=== PATIENT | male | born 1990 | race Caucasian/White ===

== ENCOUNTER 2018-02-10 04:14 | Emergency (ER) | payer MEDICAID, SELFPAY ==
[2018-02-10] VITALS (72 sets, daily range): BP systolic 101–154; BP diastolic 59–83; PULSE 90–144; RESP 12–38; TEMP 36.5–36.9; O2SAT 84–100
[2018-02-10] MEDS: Normal Saline 1,000 ML 1000 ML IV ×4 (04:15→07:56)
--- NOTE | 2018-02-10 04:26 | ED.GENADUL ---
Disposition Clinical Impression: DKA (diabetic ketoacidoses) Disposition: AGAINST MEDICAL ADVICE Condition: Serious Instructions: Diabetic Ketoacidosis (ED) Additional Instructions: Drink plenty of fluids and get plenty of rest. Eat a well-balanced diet and check your sugar regularly. Avoid processed foods, sugars and excess carbs. Take your regular medications as directed. Follow-up with your scheduled appointment with Dr. Arnold and Dr. Saleem as directed. Home health will see you later today for reevaluation. Return immediately to the emergency department any worsening or new concerning symptoms. Medical Decision Making - Lab Data Abnormal Lab Results 02/10/18 02/10/18 02/10/18 04:40 04:40 04:40 WBC 24.76 H RBC 3.58 L Hgb 11.6 L D Hct 34.9 L MCV 97.5 H MCH 32.4 MCHC 33.2 RDW 13.2 Plt Count 299 D MPV 10.9 Immature Gran % 1.4 Neutrophils % 84.1 Lymphocytes % 11.0 Monocytes % 3.2 Eosinophils % 0.1 Basophils % 0.2 Absolute Neutrophils 20.82 H Absolute Lymphocytes 2.72 Absolute Monocytes 0.79 H Absolute Eosinophils 0.02 Absolute Basophils 0.05 Differential Comment Agrees w/ instrument RBC Morphology Normal Sodium 132 L Potassium 5.6 H D Chloride 94 L Carbon Dioxide < 5.0 L* Anion Gap 33.58691 H BUN 12 D Creatinine 1.26 Estimated GFR/1.73 m2 >= 60.00 Glucose 632 H* D Lactate 3.2 H Calcium 8.3 L Magnesium 1.7 L Total Bilirubin 0.7 AST 25 ALT 23 Alkaline Phosphatase 126 H Troponin I 0.02 Total Protein 6.1 L Albumin 3.2 L Urine Color Urine Clarity Urine pH Ur Specific [place] Urine Protein Urine Ketones Urine Blood Urine Nitrite Urine Bilirubin Urine Urobilinogen Ur Leukocyte Esterase Urine RBC Urine WBC Ur Epithelial Cells Urine Crystals Urine Bacteria Urine Casts Urine Mucus Ur Culture Indicated? Urine Glucose 02/10/18 04:55 WBC RBC Hgb Hct MCV MCH MCHC RDW Plt Count MPV Immature Gran % Neutrophils % Lymphocytes % Monocytes % Eosinophils % Basophils % Absolute Neutrophils Absolute Lymphocytes Absolute Monocytes Absolute Eosinophils Absolute Basophils Differential Comment RBC Morphology Sodium Potassium Chloride Carbon Dioxide Anion Gap BUN Creatinine Estimated GFR/1.73 m2 Glucose Lactate Calcium Magnesium Total Bilirubin AST ALT Alkaline Phosphatase Troponin I Total Protein Albumin Urine Color Yellow Urine Clarity Clear Urine pH 5.0 Ur Specific [place] 1.020 Urine Protein 100 H Urine Ketones >=160 Urine Blood Trace-lysed H Urine Nitrite Negative Urine Bilirubin Small H Urine Urobilinogen 0.2 Ur Leukocyte Esterase Negative Urine RBC 0-2 Urine WBC Negative Ur Epithelial Cells Few Urine Crystals Negative Urine Bacteria Negative Urine Casts 0-2 coarse granular Urine Mucus Negative Ur Culture Indicated? No Urine Glucose 500 H Results reviewed for labs ordered during visit: Yes - EKG Data -: EKG Interpreted by Me Rate: tachycardia 02/10/18 04:28 Sinus tachycardia, QRS narrow, no ST segment elevation - Radiology Data Radiology results: image reviewed - Medical Decision Making 19-year-old male type I diabetic presents with generalized weakness, dehydration with nausea and blood glucose measuring greater than 600 [address] route. He has a history of gastroparesis as well as recurrent episodes of DKA. He arrives afebrile but with a pulse in the 140s, normotensive, clinically dehydrated in appearance. Differential diagnosis includes DKA, dehydration, electrolyte abnormality. 2 IVs placed, 2 L normal saline infused, insulin drip initiated. Patient established urine output. Labs reveal white blood cell count of 24, hematocrit 34, platelets 299. Lactic acid 3.2. Chemistries reveal bicarb 2, potassium 5.1, Magnesium 1.7, glucose greater than 600, Anion gap 33 Chest x-ray without focal infiltrate, otherwise unremarkable. No ICU beds available at and [facility], case discussed with Dr. Ricardo at [facility] and patient accepted in transfer to the ICU. Informed by our EMS providers that they are unable to transport insulin drip, [facility] contacted and they are unavailable to transfer. Given lack of transport options, as well as patient's correction of glucose to 415, I feel the patient's risk/benefit weighs in favor of placing insulin on hold for approximately 60 minutes of transport with ongoing fluid resuscitation. Unfortunately, at the time of transfer, the patient stated he wished to be made DNR/DNI and did not be transferred to tertiary care. He states he has established care with Dr. Britt Saleem and wishes to see her in consultation again today. Therefore, in accordance with the patient's wishes, transfer has been postponed and the patient will be seen in consultation by Dr. Saleem. Case will be signed out to Dr. Adames pending further consultation. History of Present Illness - General Chief complaint: Diabetes Stated complaint: SHANE Time Seen by Provider: 02/10/18 04:19 Source: patient, EMS, RN notes reviewed, old records reviewed Mode of arrival: EMS Limitations: no limitations - History of Present Illness Initial comments: Weakness: 27-year-old male. Type I diabetic with a history of DKA, poor glucose control, poor medical compliance who was recently admitted and discharged on February 07. He returns with recurrent nausea, vomiting, decreased p.o. intake and subsequent moderate constant weakness today. He is alert and conversant but declines to give further history. - Related Data Blood Sugar Diagnostic [Freestyle Test Strips] 1 each MC DIRECTED #60 strip 05/02/16 Alcohol Antiseptic Pads [Alcohol Swab] 1 each TP QID #100 med..pad 08/26/17 Blood Sugar Diagnostic [Freestyle Insulinx Test Strips] 1 each MC DIRECTED #60 strip 08/26/17 Lancets [Lancets Thin] 1 each MC QID #120 each 08/26/17 Magnesium Oxide [Mag-Ox 400] 400 mg PO DAILY@1000 #30 tab 08/26/17 Mirtazapine [Remeron] 15 mg PO QPM #30 tab 08/26/17 Multivitamin W/Minerals [Theragran-M] 1 tab PO BID #60 tab 08/26/17 [place], Insulin Disposable [Pen [place]] 1 each MC BID #60 dis.needle 08/26/17 Syringe & Needle,Insulin,1 ml [Insulin Syringe] 1 each MC QID #120 disp.syrin 08/26/17 Dronabinol [Marinol] 5 mg PO BID 10/02/17 Insulin Aspart [Novolog Flexpen] 5 - 10 units SQ AC #5 appful 01/24/18 Insulin Detemir [Levemir Flextouch Pen] 5 units SC BID@1000,2200 #5 pen 01/24/18 Allergies Allergy/AdvReac Type Severity Reaction Status Date / Time lidocaine AdvReac Severe silent Unverified 02/11/18 11:31 stroke procaine HCl [From Novocain] AdvReac Severe silent Unverified 02/11/18 11:31 stroke Penicillins AdvReac Intermediate vomiting Unverified 02/11/18 11:31 etodolac AdvReac Mild Nausea Unverified 02/11/18 11:31 ketorolac tromethamine AdvReac Mild vomits Unverified 02/11/18 11:31 [From Toradol] sodium fluoride AdvReac Mild Unverified 02/11/18 11:31 [From Fluor-a-day] morphine AdvReac Nausea Unverified 02/11/18 11:31 Review of Systems Limitations: ROS unobtainable due to patients medical condition Past Medical History - Past Medical History Medical history: diabetes, GERD, hyperlipidemia Malabsorption syndrome Surgical history: no surgical history - Social History Alcohol use: none Drug use: marijuana General Exam - General Limitations: no limitations General appearance: in distress, cachectic - Head Head exam: Present: atraumatic, normocephalic - Eye Eye exam: Present: PERRL, EOMI - ENT ENT exam: Present: mucous membranes dry - Neck Neck exam: Present: normal inspection, full ROM. Absent: tenderness - Respiratory Respiratory exam: Present: other (Tachypnea, clear to auscultation bilaterally.) - Cardiovascular Cardiovascular Exam: Present: tachycardia. Absent: systolic murmur - GI/Abdominal GI/Abdominal exam: Present: soft. Absent: distended, tenderness - Neurological Exam Neurological exam: Present: alert, oriented X3 - Psychiatric Psychiatric exam: Present: flat affect - Skin Skin exam: Present: warm, dry, intact Course Vital Signs - 24 hr 02/10/18 04:18 Temperature 36.8 C Pulse 144 H Respiratory 28 H Rate Blood Pressure 131/77 Pulse Oximetry 100
--- NOTE | 2018-02-10 04:29 | ED.GENADUL_ITS ---
Disposition Clinical Impression: DKA (diabetic ketoacidoses) Disposition: AGAINST MEDICAL ADVICE Condition: Serious Instructions: Diabetic Ketoacidosis (ED) Additional Instructions: Drink plenty of fluids and get plenty of rest. Eat a well-balanced diet and check your sugar regularly. Avoid processed foods , sugars and excess carbs. Take your regular medications as directed. Follow-up with your scheduled appointment with Dr. Arnold and Dr. Saleem as directed. Home health will see you later today for reevaluation. Return immediately to the emergency department any worsening or new concerning symptoms. Medical Decision Making - Lab Data Abnormal Lab Results 02/10/18 02/10/18 02/10/18 04:40 04:40 04:40 WBC 24.76 H RBC 3.58 L Hgb 11.6 L D Hct 34.9 L MCV 97.5 H MCH 32.4 MCHC 33.2 RDW 13.2 Plt Count 299 D MPV 10.9 Immature Gran % 1.4 Neutrophils % 84.1 Lymphocytes % 11.0 Monocytes % 3.2 Eosinophils % 0.1 Basophils % 0.2 Absolute Neutrophils 20.82 H Absolute Lymphocytes 2.72 Absolute Monocytes 0.79 H Absolute Eosinophils 0.02 Absolute Basophils 0.05 Differential Comment Agrees w/ instrument RBC Morphology Normal Sodium 132 L Potassium 5.6 H D Chloride 94 L Carbon Dioxide < 5.0 L* Anion Gap 33.98036 H BUN 12 D Creatinine 1.26 Estimated GFR/1.73 m2 >= 60.00 Glucose 632 H* D Lactate 3.2 H Calcium 8.3 L Magnesium 1.7 L Total Bilirubin 0.7 AST 25 ALT 23 Alkaline Phosphatase 126 H Troponin I 0.02 Total Protein 6.1 L Albumin 3.2 L Urine Color Urine Clarity Urine pH Ur Specific [place] Urine Protein Urine Ketones Urine Blood Urine Nitrite Urine Bilirubin Urine Urobilinogen Ur Leukocyte Esterase Urine RBC Urine WBC Ur Epithelial Cells Urine Crystals Urine Bacteria Urine Casts Urine Mucus Ur Culture Indicated? Urine Glucose 02/10/18 04:55 WBC RBC Hgb Hct MCV MCH MCHC RDW Plt Count MPV Immature Gran % Neutrophils % Lymphocytes % Monocytes % Eosinophils % Basophils % Absolute Neutrophils Absolute Lymphocytes Absolute Monocytes Absolute Eosinophils Absolute Basophils Differential Comment RBC Morphology Sodium Potassium Chloride Carbon Dioxide Anion Gap BUN Creatinine Estimated GFR/1.73 m2 Glucose Lactate Calcium Magnesium Total Bilirubin AST ALT Alkaline Phosphatase Troponin I Total Protein Albumin Urine Color Yellow Urine Clarity Clear Urine pH 5.0 Ur Specific [place] 1.020 Urine Protein 100 H Urine Ketones >=160 Urine Blood Trace-lysed H Urine Nitrite Negative Urine Bilirubin Small H Urine Urobilinogen 0.2 Ur Leukocyte Esterase Negative Urine RBC 0-2 Urine WBC Negative Ur Epithelial Cells Few Urine Crystals Negative Urine Bacteria Negative Urine Casts 0-2 coarse granular Urine Mucus Negative Ur Culture Indicated? No Urine Glucose 500 H Results reviewed for labs ordered during visit: Yes - EKG Data -: EKG Interpreted by Me Rate: tachycardia 02/10/18 04:28 Sinus tachycardia, QRS narrow, no ST segment elevation - Radiology Data Radiology results: image reviewed - Medical Decision Making 19-year-old male type I diabetic presents with generalized weakness, dehydration with nausea and blood glucose measuring greater than 600 [address] route. He has a history of gastroparesis as well as recurrent episodes of DKA. He arrives afebrile but with a pulse in the 140s, normotensive, clinically dehydrated in appearance. Differential diagnosis includes DKA, dehydration, electrolyte abnormality. 2 IVs placed, 2 L normal saline infused, insulin drip initiated. Patient established urine output. Labs reveal white blood cell count of 24, hematocrit 34, platelets 299. Lactic acid 3.2. Chemistries reveal bicarb 2, potassium 5.1, Magnesium 1.7, glucose greater than 600, Anion gap 33 Chest x-ray without focal infiltrate, otherwise unremarkable. No ICU beds available at and [facility], case discussed with Dr. Ricardo at [facility] and patient accepted in transfer to the ICU. Informed by our EMS providers that they are unable to transport insulin drip, [facility] and [facility] are unavailable to transfer. Given lack of transport options, as well as patient's correction of glucose to 415, I feel the patient's risk/benefit weighs in favor of placing insulin on hold for approximately 60 minutes of transport with ongoing fluid resuscitation. Unfortunately, at the time of transfer, the patient stated he wished to be made DNR/DNI and did not be transferred to tertiary care. He states he has established care with Dr. Britt Saleem and wishes to see her in consultation again today. Therefore, in accordance with the patient's wishes, transfer has been postponed and the patient will be seen in consultation by Dr. Saleem. Case will be signed out to Dr. Adames pending further consultation. History of Present Illness - General Chief complaint: Diabetes Stated complaint: SHANE Time Seen by Provider: 02/10/18 04:19 Source: patient, EMS, RN notes reviewed, old records reviewed Mode of arrival: EMS Limitations: no limitations - History of Present Illness Initial comments: Weakness: 27-year-old male. Type I diabetic with a history of DKA, poor glucose control, poor medical compliance who was recently admitted and discharged on February 07. He returns with recurrent nausea, vomiting, decreased p.o. intake and subsequent moderate constant weakness today. He is alert and conversant but declines to give further history. - Related Data Blood Sugar Diagnostic [Freestyle Test Strips] 1 each MC DIRECTED #60 strip 05/02/16 Alcohol Antiseptic Pads [Alcohol Swab] 1 each TP QID #100 med..pad 08/26/17 Blood Sugar Diagnostic [Freestyle Insulinx Test Strips] 1 each MC DIRECTED # 60 strip 08/26/17 Lancets [Lancets Thin] 1 each MC QID #120 each 08/26/17 Magnesium Oxide [Mag-Ox 400] 400 mg PO DAILY@1000 #30 tab 08/26/17 Mirtazapine [Remeron] 15 mg PO QPM #30 tab 08/26/17 Multivitamin W/Minerals [Theragran-M] 1 tab PO BID #60 tab 08/26/17 [place], Insulin Disposable [Pen [place]] 1 each MC BID #60 dis.needle 08/26/17 Syringe & Needle,Insulin,1 ml [Insulin Syringe] 1 each MC QID #120 disp.syrin Dronabinol [Marinol] 5 mg PO BID 10/02/17 Insulin Aspart [Novolog Flexpen] 5 - 10 units SQ AC #5 appful 01/24/18 Insulin Detemir [Levemir Flextouch Pen] 5 units SC BID@1000,2200 #5 pen Allergies Allergy/AdvReac Type Severity Reaction Status Date / Time lidocaine AdvReac Severe silent Unverified 02/11/18 11:31 stroke procaine HCl [From Novocain] AdvReac Severe silent Unverified 02/11/18 11:31 stroke Penicillins AdvReac Intermediate vomiting Unverified 02/11/18 11:31 etodolac AdvReac Mild Nausea Unverified 02/11/18 11:31 ketorolac tromethamine AdvReac Mild vomits Unverified 02/11/18 11:31 [From Toradol] sodium fluoride AdvReac Mild Unverified 02/11/18 11:31 [From Fluor-a-day] morphine AdvReac Nausea Unverified 02/11/18 11:31 Review of Systems Limitations: ROS unobtainable due to patients medical condition Past Medical History - Past Medical History Medical history: diabetes, GERD, hyperlipidemia Malabsorption syndrome Surgical history: no surgical history - Social History Alcohol use: none Drug use: marijuana General Exam - General Limitations: no limitations General appearance: in distress, cachectic - Head Head exam: Present: atraumatic, normocephalic - Eye Eye exam: Present: PERRL, EOMI - ENT ENT exam: Present: mucous membranes dry - Neck Neck exam: Present: normal inspection, full ROM. Absent: tenderness - Respiratory Respiratory exam: Present: other (Tachypnea, clear to auscultation bilaterally.) - Cardiovascular Cardiovascular Exam: Present: tachycardia. Absent: systolic murmur - GI/Abdominal GI/Abdominal exam: Present: soft. Absent: distended, tenderness - Neurological Exam Neurological exam: Present: alert, oriented X3 - Psychiatric Psychiatric exam: Present: flat affect - Skin Skin exam: Present: warm, dry, intact Course Vital Signs - 24 hr 02/10/18 04:18 Temperature 36.8 C Pulse 144 H Respiratory 28 H Rate Blood Pressure 131/77 Pulse Oximetry 100
[2018-02-10] MEDS: Ondansetron 4 MG/2 ML VIAL IVP (04:41)
[2018-02-10 04:49] LABS: Abs Immature Grans 0.35 k/cumm (0.0-0.09); Absolute Eosinophil Count 0.02 k/cumm (0.0-0.7); Basophils % 0.2; Eosinophils % 0.1; HCT 34.9 % (40.0-50.0); HGB 11.6 g/dL (13.5-17.5); Immature Grans % 1.4; Mean Corp. HGB Concentration 33.2 g/dL (32.0-36.0); Mean Corpuscular Hemoglobin 32.4 pg (27.0-33.0); Mean Corpuscular Volume 97.5 fL (80-95); Mean Platelet Volume 10.9 fL (8.0-11.0); Monocytes % 3.2; Neutrophils % 84.1; Platelet Count 299 x1000/uL (130-400); RBC 3.58 m/cumm (4.50-6.00); RBC Distribution Width 13.2 % (11.8-14.1); White Blood Cell Count 24.76 k/cumm (4.4-10.8)
[2018-02-10 04:54] LABS: Lactate-non-spesis 3.2 mmol/L (0.6-1.4)
[2018-02-10 05:05] LABS: Bilirubin Small (Negative); Blood Trace-lysed (Negative); Clarity Clear; Glucose 500 mg/dL (Negative); Ketones >=160 mg/dL (Negative); Leukocyte Esterase Negative (Negative); Nitrite Negative (Negative); Urobilinogen 0.2 EU/dL (Up TO 0.2)
--- NOTE | 2018-02-10 05:10 | DI.REPORT_ITS ---
SYMPTOM/DIAGNOSIS: WEAKNESS, DKA AP AND LATERAL CHEST: Comparison is made with 23 January 2018. Cardiac and mediastinal contours have a normal appearance. The lungs are well inflated and clear. No infiltrate or effusion is seen. There is no evidence of pneumothorax or rib fracture. IMPRESSION: Negative chest x-ray.
[2018-02-10 05:11] LABS: ALT 23 U/L (12-78); AST 25 U/L (15-37); Albumin 3.2 g/dL (3.4-5.0); Alkaline Phosphatase 126 U/L (46-116); BUN 12 mg/dL (7-18); Bilirubin, Total 0.7 mg/dL (0.2-1.0); CREATININE 1.26 mg/dL (0.70-1.30); Calcium 8.3 mg/dL (8.5-10.1); Chloride 94 mmol/L (98-107); Magnesium 1.7 mg/dL (1.8-2.4); Potassium 5.6 mmol/L (3.5-5.1); Sodium 132 mmol/L (136-145); Total Protein 6.1 g/dL (6.4-8.2); Troponin I 0.02 ng/mL (0.00-0.06)
[2018-02-10 05:17] LABS: Absolute Basophil Count 0.05 k/cumm (0.0-0.2); Absolute Lymphocyte Count 2.72 k/cumm (1.2-3.4); Absolute Monocyte Count 0.79 k/cumm (0.11-0.7); Absolute Neutrophil Count 20.82 k/cumm (1.2-6.7)
[2018-02-10 05:18] LABS: Diff Comment Agrees w/ Instrument; RBC Morphology Normal
[2018-02-10 05:20] LABS: Bacteria Negative HPF (Negative); Casts 0-2 Coarse Granular LPF (Negative); Crystals Negative HPF (Negative); Epithelial Cells Few HPF (Negative); Mucus Negative (Negative); RBC 0-2 (0-2); WBC Negative HPF (0-5)
[2018-02-10 05:21] LABS: C & S Indicated? No
[2018-02-10 05:22] LABS: Glucose 632 mg/dL (70-100)
[2018-02-10 05:23] LABS: Anion Gap 33.00001 mmol/L (3-11); CO2 < 5.0 mmol/L (21.0-32.0)
--- NOTE | 2018-02-10 05:51 | DI.VRAD_ITS ---
EXAM: XR Chest, 2 Views EXAM DATE/TIME: 02/10/2018 4:23 AM CLINICAL HISTORY: 27 years old, male; Signs and symptoms; Other: Weakness, dka TECHNIQUE: XR of the chest, 2 views. COMPARISON: CR - CHEST 2 VIEWS PA,LAT 2018-01-23 09:12 FINDINGS: Lungs: Normal. No consolidation. Pleural space: Normal. No pneumothorax. Heart/Mediastinum: Normal. No cardiomegaly. Bones/joints: Unremarkable for age. IMPRESSION: No acute findings. Dictated and Authenticated by: Demond Whatley MD. Ordering:SHASHI GUERRA MD
[2018-02-10] MEDS: MAGNESIUM SULFATE 1 GM/100 ML BAG IVPB (05:55)
[2018-02-10] MEDS: POTASSIUM CHLORIDE/0.9% NACL 1,000 ML 150 MEQ IV (06:45)
--- NOTE | 2018-02-10 07:26 | PDOC.ERCMPRO ---
Care Management Progress Note 02/10-Dani requested assistance with calling his mother Ruby, [phone]. This CM called Ruby and Dani is talking with her on the phone. Dr. Sprague requested that Dr. Saleem and the hospital clinical pharmacy specialist be called in. Dan[place] be [place] [facility] [place] but is refusing and stating that he wants to and that was his plan with Dr. Saleem. At this time, Domin[facility] clinical pharmacy specialist is here with Dani and Dr. Saleem is on her way.
--- NOTE | 2018-02-10 07:28 | CMPROGNOTE_ITS ---
Care Management Progress Note 02/10-Dani requested assistance with calling his mother Ruby, [phone]. This CM called Ruby and Dani is talking with her on the phone. Dr. Sprague requested that Dr. Saleem and the hospital truck driver be called in. Dani [place] [facility] [place] but is refusing and stating that he wants to and that was his plan with Dr. Saleem. At this time, Dominique [facility] truck driver is here with Dani and Dr. Saleem is on her way.
[2018-02-10 08:16] LABS: Anion Gap 24.9 mmol/L (3-11); BUN 10 mg/dL (7-18); CO2 7.1 mmol/L (21.0-32.0); CREATININE 1.11 mg/dL (0.70-1.30); Calcium 7.2 mg/dL (8.5-10.1); Chloride 106 mmol/L (98-107); Glucose 226 mg/dL (70-100); Potassium 3.9 mmol/L (3.5-5.1); Sodium 138 mmol/L (136-145)
--- NOTE | 2018-02-10 09:38 | ED.FU_ITS ---
Disposition Clinical Impression: DKA (diabetic ketoacidoses) Disposition: AGAINST MEDICAL ADVICE Condition: Serious Instructions: Diabetic Ketoacidosis (ED) Additional Instructions: Drink plenty of fluids and get plenty of rest. Eat a well-balanced diet and check your sugar regularly. Avoid processed foods , sugars and excess carbs. Take your regular medications as directed. Follow-up with your scheduled appointment with Dr. Arnold and Dr. Saleem as directed. Home health will see you later today for reevaluation. Return immediately to the emergency department any worsening or new concerning symptoms. Medical Decision Making - Lab Data Laboratory Tests 02/10/18 02/10/18 02/10/18 04:40 04:40 04:40 WBC 24.76 H RBC 3.58 L Hgb 11.6 L D Hct 34.9 L MCV 97.5 H MCH 32.4 MCHC 33.2 RDW 13.2 Plt Count 299 D MPV 10.9 Immature Gran % 1.4 Neutrophils % 84.1 Lymphocytes % 11.0 Monocytes % 3.2 Eosinophils % 0.1 Basophils % 0.2 Absolute Neutrophils 20.82 H Absolute Lymphocytes 2.72 Absolute Monocytes 0.79 H Absolute Eosinophils 0.02 Absolute Basophils 0.05 Differential Comment Agrees w/ instrument RBC Morphology Normal Sodium 132 L Potassium 5.6 H D Chloride 94 L Carbon Dioxide < 5.0 L* Anion Gap 33.58618 H BUN 12 D Creatinine 1.26 Estimated GFR/1.73 m2 >= 60.00 Glucose 632 H* D Lactate 3.2 H Calcium 8.3 L Magnesium 1.7 L Total Bilirubin 0.7 AST 25 ALT 23 Alkaline Phosphatase 126 H Troponin I 0.02 Total Protein 6.1 L Albumin 3.2 L Urine Color Urine Clarity Urine pH Ur Specific [place] Urine Protein Urine Ketones Urine Blood Urine Nitrite Urine Bilirubin Urine Urobilinogen Ur Leukocyte Esterase Urine RBC Urine WBC Ur Epithelial Cells Urine Crystals Urine Bacteria Urine Casts Urine Mucus Ur Culture Indicated? Urine Glucose 02/10/18 02/10/18 04:55 08:01 WBC RBC Hgb Hct MCV MCH MCHC RDW Plt Count MPV Immature Gran % Neutrophils % Lymphocytes % Monocytes % Eosinophils % Basophils % Absolute Neutrophils Absolute Lymphocytes Absolute Monocytes Absolute Eosinophils Absolute Basophils Differential Comment RBC Morphology Sodium 138 Potassium 3.9 D Chloride 106 Carbon Dioxide 7.1 L Anion Gap 24.9 H BUN 10 Creatinine 1.11 Estimated GFR/1.73 m2 >= 60.00 Glucose 226 H D Lactate Calcium 7.2 L Magnesium Total Bilirubin AST ALT Alkaline Phosphatase Troponin I Total Protein Albumin Urine Color Yellow Urine Clarity Clear Urine pH 5.0 Ur Specific [place] 1.020 Urine Protein 100 H Urine Ketones >=160 Urine Blood Trace-lysed H Urine Nitrite Negative Urine Bilirubin Small H Urine Urobilinogen 0.2 Ur Leukocyte Esterase Negative Urine RBC 0-2 Urine WBC Negative Ur Epithelial Cells Few Urine Crystals Negative Urine Bacteria Negative Urine Casts 0-2 coarse granular Urine Mucus Negative Ur Culture Indicated? No Urine Glucose 500 H - Medical Decision Making Please see Dr. Sprague's note for initial presentation, exam and plan. 0800 -- Patient is a 27-year-old male with a history of type 1 diabetes well- known to the ED for multiple admissions for DKA who presented in DKA. Patient received 4 L IV fluids. Had initial glucose in the 700s. Bicarb 5. Anion gap 33. Patient accepted for transfer to [facility] due to lack of ICU beds here but patient is refusing transfer. Patient has been seen by palliative care Dr. Saleem in the past before who came to see patient in the ED today. She visited patient yesterday at his hotel and his sugar and heart rate was at his baseline and controlled. Per staff, patient's mother gave him soda at home and he presented today in DKA. 0930 -- Accucheck now 140. Repeat BMP noted a bicarb of 7, anion gap 24.9 and glucose 226. It was again discussed with patient recommendation for transfer to [facility] ICU for continued treatment for DKA but he again is refusing. The risks of disability due to his serious pathology explained and patient fully understands and demonstrates capacity to make decisions. Patient's mom is now present in the ED and she plans to take him home. 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 We will adjust his fluids and continue insulin drip as he still has an elevated anion gap per DKA protocol. Home health nursing was ordered for medication management, close monitoring of his diabetes and diabetes education. Home health will evaluate patient this afternoon. 1030 -- Glucose 94. Insulin gtt stopped due to concern for patient becoming hypoglycemic due to his brittle diabetes however he may still have an elevated anion gap. Will recheck a BMP. Patient was able to eat some toast and is eating chicken noodle soup may need to start D5 with insulin. 1055 -- repeat BMP notes bicarb of 15 anion gap of 16 and glucose 79. Gap is closing but patient still with acidosis. Patient has been up ambulating and urinating. Patient states he would like to go home. Waiting on confirming follow-up appointments until patient can leave. Will continue fluids at this time. AMA form signed. Care Signed Out By:: Dr. Sprague - Vital Signs Recent Vitals - 8H: Vital Signs - 8 hr 02/10/18 02/10/18 02/10/18 04:18 04:21 04:30 Temperature 98.2 F Pulse 144 H Respiratory 28 H 22 25 H Rate Blood Pressure 131/77 Pulse Oximetry 100 97 02/10/18 02/10/18 02/10/18 04:36 04:40 04:46 Temperature Pulse 141 H 133 H Respiratory 27 H 29 H 27 H Rate Blood Pressure 154/69 124/63 Pulse Oximetry 100 100 02/10/18 02/10/18 02/10/18 04:50 05:12 05:13 Temperature Pulse 138 H Respiratory 29 H 26 H 25 H Rate Blood Pressure 131/80 Pulse Oximetry 02/10/18 02/10/18 02/10/18 05:20 05:30 05:40 Temperature Pulse Respiratory 26 H 17 24 Rate Blood Pressure Pulse Oximetry 100 100 84 L 02/10/18 02/10/18 02/10/18 05:50 06:00 06:01 Temperature Pulse 130 H Respiratory 22 24 26 H Rate Blood Pressure 125/59 Pulse Oximetry 98 100 99 02/10/18 02/10/18 02/10/18 06:10 06:20 06:27 Temperature Pulse 138 H Respiratory 20 22 24 Rate Blood Pressure 120/70 Pulse Oximetry 100 100 100 02/10/18 02/10/18 02/10/18 06:30 06:31 06:40 Temperature 98.4 F Pulse 134 H Respiratory 22 26 H 21 Rate Blood Pressure 134/72 Pulse Oximetry 100 100 100 02/10/18 02/10/18 02/10/18 06:46 06:50 07:00 Temperature Pulse 135 H Respiratory 26 H 18 25 H Rate Blood Pressure 134/68 Pulse Oximetry 100 100 100 02/10/18 02/10/18 02/10/18 07:01 07:10 07:15 Temperature Pulse 132 H 131 H Respiratory 22 20 36 H Rate Blood Pressure 128/71 136/83 Pulse Oximetry 100 100 100 02/10/18 02/10/18 02/10/18 07:20 07:30 07:31 Temperature Pulse 134 H Respiratory 37 H 29 H 23 Rate Blood Pressure 115/82 Pulse Oximetry 02/10/18 02/10/18 02/10/18 07:40 07:45 07:50 Temperature Pulse 128 H Respiratory 24 22 18 Rate Blood Pressure 113/73 Pulse Oximetry 02/10/18 02/10/18 02/10/18 08:00 08:01 08:10 Temperature Pulse 118 H Respiratory 25 H 16 19 Rate Blood Pressure 117/63 Pulse Oximetry 100 100 100 02/10/18 02/10/18 02/10/18 08:15 08:20 08:30 Temperature Pulse 103 H 103 H Respiratory 20 26 H 19 Rate Blood Pressure 126/81 117/83 Pulse Oximetry 100 99 99 02/10/18 02/10/18 02/10/18 08:31 08:40 08:45 Temperature Pulse 100 H Respiratory 19 20 20 Rate Blood Pressure 118/73 Pulse Oximetry 99 98 98 02/10/18 02/10/18 02/10/18 08:50 09:00 09:01 Temperature Pulse 98 H Respiratory 20 19 20 Rate Blood Pressure 113/74 Pulse Oximetry 99 99 99 02/10/18 02/10/18 02/10/18 09:10 09:15 09:20 Temperature Pulse 98 H Respiratory 17 19 20 Rate Blood Pressure 114/70 Pulse Oximetry 98 98 99 - Continuation of Care Continuation of Care Plan: Case endorsed to follow glucose and repeat BMP. Plan was for transfer to [facility] ICU for DKA but patient is refusing transfer.
[2018-02-10 10:49] LABS: BUN 9 mg/dL (7-18); CREATININE 0.98 mg/dL (0.70-1.30); Chloride 105 mmol/L (98-107); Glucose 79 mg/dL (70-100); Potassium 3.8 mmol/L (3.5-5.1); Sodium 136 mmol/L (136-145)
--- NOTE | 2018-02-13 09:05 | PCNE_ITS ---
PALLIATIVE CARE ER CONSULT DATE OF VISIT February 10, 2018 REASON FOR CONSULT DKA. ASSESSMENT AND PLAN Dani Owusu is a 27-year-old man diagnosed with type 1 diabetes on his 16th birthday. He has never managed his diabetes well after his first year and a half to two years. He has had four Med/Surg admissions this year, three ICUs and eight Emergency Room visit. He is clearly not caring for himself well. Apparently, there was talk of him going to an assisted living, or some kind of supportive care at his last discharge. He adamantly refuses that. He is currently living in a homeless hotel in [place]. His mother is living with him, as she is homeless and does not quality for a waiver herself. She as usual is piggy backing on Dani's benefits so that she can get what she needs. I did ask Dani directly the day prior to today's visit if he wanted his mother to continue living there and he did, as he needs her to take care of him. Unfortunately, last night her way of caring for him was to give him a liter of regular xenia whitney, which has more than enough sugar for a diabetic. I did speak with Dr. Tamar Arnold Psychiatrist about her ability to help me with competency. She said that she strongly supports me helping him divorce his mother. She suggested that I advice him to divorce your mom x2 months and then we will talk about code status. I agree with this. Ruby Cosme, Dani's mom has always been a health hazard to him. I do not feel comfortable with helping him change his code status to DNR/DNI. I did strongly recommend that we get him involved with endocrinology again. I reminded him that most people with type I diabetes can live several more decades than what he has done so far. He is not sure he is interested in doing that however. He did agree to stay at the Emergency Room to get a couple more liters of fluids on board. He said that he will be seeing me next week. We will try to arrange his schedule so that he can see me and Dr. Arnold one after the other. In the meantime, he does remain at high risk for . He was the one that called 911 this morning, even though his mother was in the bed next to him. If he is unable to care for himself, he will and I told him I was worried about this. He said I am not yet. Total time spent talking with Dr. Sprague, Dr. Adames, Care Management, Reservation Agent , etcetera, in addition to being with Dani was 1 hour and 25 minutes. SUBJECTIVE I am very familiar with Dani having been his primary care provider prior to his diagnosis with type 1 diabetes at age 16. I saw him on February 09, 2018 at his home at the [facility]. At that time, his blood sugars were between 130s and 200, and he was hydrated and eating protein-rich foods when I left him. However, last night, he ran out of ice chips so he could not drink any further water. His mother went out to the grocery store and bought him regular xenia whitney full of sugar. He drank a 2 liter bottle last night. He came in this morning in A with a blood sugar greater than 600. His bicarb was less than 5. Dr. Nilson Sprague was his initial ER physician and he called [facility] and secured a critical care bed for Dani. When presented with the option to be transferred to [facility] he refused. Note that Dani has a long history of leaving our hospital AMA. He said the reason he will not go to [facility] is that the last time they just gave him a grilled cheese sandwich, chicken noodle soup and sent him home. He explains that this morning, he called 911 on his own behalf. His mother slept through his original call and his distress, which lead him to call. His mother has a long history of not caring for him well, though he is absolutely dependent upon her emotionally. Again, it is a very unhealthy and meshed relationship. He re-iterated his desire to soon. He says he has another couple of friends he needs to say goodbye to, but he expects that he will be within the next couple of weeks. I did try to persuade him in the presence of Kenisha Orozco Cardiology Clinical Consultant and Scarlett Talamantes [facility] Care Management to go to [facility]. He again absolutely refused multiple times. He understands that this is not in his best interest. He understands that Dr. Sprague and Dr. Adames also want him to go, but he is clear he will not go. So, he did agree to say long enough to have a total of 5 liters IV fluids given and more blood tests to make sure that he is turning his DKA around. OBJECTIVE GENERAL - A chronically-ill appearing man, pale, very slender/ cachectic. Moderate psychic distress. VITAL SIGNS - Temperature was 36.9. Pulse in the 120s to 130s. Blood pressure 130/70s. Respiratory rate is between 21 and 26. O2 saturation 100% on room air. EYES - His eyes are anicteric, not injected. No xanthomas. No periorbital edema. HENT - His mucous membranes appear dry, much commercial producer than yesterday afternoon when I saw him. No oral lesions. He does have a fruity smell to his breath. NECK - Neck without lymphadenopathy or thyromegaly. LUNGS - His lungs were distant, but clear. HEART - His heart was tachycardic and regular. ABDOMEN - His abdomen is slender, nontender. Positive bowel sounds within normal limits. No masses appreciated. BACK - His back is without CVA tenderness. EXTREMITIES - His extremities are without cyanosis or edema. NEUROLOGIC - He was alert and oriented x3. He was able to tell me a pretty good history, except for he perseverated on the [employer] ice chips as being toxic as his mother reported to him. PSYCHIATRIC - No evidence of depression or anxiety. He is quite clear however, that he will not go to [facility], nor will he be admitted to [facility]. LABORATORY STUDIES His labs initially, sodium was 132, it was 138 at the time I was seeing him, potassium was 5.6 initially down to 3.9. Chloride was 94 up to 106. His initial carbon dioxide was less than 5, it was 7.1 at 0800 and up to 15 at 10:35. His initial anion gap was 33, it was down to 16 at 10:35, creatinine was 1.26, down to 0.98. His initial glucose was 632, he was down to 79 at discharge. Calcium was uncorrected at 8.3, magnesium was 1.7, alkaline phosphatase was 126, total protein was 6.1, which is actually improved from 4.6 on the day he was discharged 02/07/2018. Albumin was 3.2. Note that his white count was quite elevated at 24.76 and his lactate was elevated as well to 3.2 indicating probable infection in the setting of his DKA. Chest x-ray - He did have a chest x-ray done, which showed no infiltrate of effusion. URINALYSIS - He had a urine done, which showed no leukocyte esterase, no nitrites, negative WBCs, and a glucose greater than 500.
--- NOTE | 2018-02-15 12:22 | PDOC.ERCMPRO ---
Date of Service: 02/10/18 Time of Service: 14:00 Care Management Progress Note S/O: HARSH was contacted by to refer patient to meals on wheels he is staying at the [facility]. CM [id number] VCIL and set up meals on wheels to start delivery on 02/11/18. He will have 30 days emergency meals and CM will complete the longterm meal application with patient once [place] emails the application to CM. CM contacted and Dani and updated them with the plan for meal deliveries. CM to follow up with nurse [facility] and provide updates.
--- NOTE | 2018-02-15 12:35 | CMPROGNOTE_ITS ---
Date of Service: 02/10/18 Time of Service: 14:00 Care Management Progress Note S/O: HARSH was contacted by to refer patient to meals on wheels he is staying at the [facility]. CM [id number] VCIL and set up meals on wheels to start delivery on 02/11/18. He will have 30 days emergency meals and CM will complete the [facility] meal application with patient once [place] emails the application to CM. CM contacted and Dani and updated them with the plan for meal deliveries. CM to follow up with nurse [facility] and provide updates.
--- NOTE | 2018-02-15 13:14 | CMPROGNOTE_ITS ---
Date of Service: 02/11/18 Time of Service: 12:00 Care Management Progress Note CM was notified that Dani was in the ED and was brought in by ambulance per request of . CM was told by ED CM that patient wanted to be a DNR/DNI and is requesting to complete a COLST. CM called whom stated that she told Dani she would meet him at the hospital to complete the forms and have a hospice consult. Dr Saleem reports she has notified Luciana parkinson RN of pending consult. CM went to the ED to meet with Dani he was on a stretcher in the ED Hallway he was signing AMA paperwork with primary nurse. CM requested a room to meet with the patient, Mother, and Hospice states there is not an available room and I have a critical patient arriving. Patient gives permission to meet in the current location in the ED. Dani states to CM I am not able to fight with my body anymore and I am ready to go to my final resting place. He states he has said goodbye to his friends and family. CM offered services including admission to a residential facility such as [facility] or SNF he refused. Dani states I am competent to make this decision per . Dani states I can not keep coming back here to be beat Up. CM requested Dani clarify his comments and offered transfer to another facility. Dani states I can't take this anymore my body is shutting down, I can't eat, I cant keep taking medication, and I am tired of hospitals. CM met with patient, and team including , , Felicita Garner from hospice and Dani's Mom Ruby, states to the team that Dani is competent to make his own decisions at this time and will complete Certificate of terminal illness in conjunction with . CM provided support to Pt, completed the COLST with patient and he was admitted to Hospice services at his request. Patient has obtained an additional 28 days at the [facility] through economic services, emergency services, Hospice is aware of housing circumstances. CM to communicate update to Marylou PLAZA, patrol community service officer .
== END 2018-02-10 11:57 | disposition left against medical advice (07) ==
PROVIDERS: Emergency Medicine; Emergency Provider Physician Assistant; PCP Specialist/Technologist Athletic Trainer
DX: E10.10 Type 1 diabetes mellitus with ketoacidosis without coma (principal); E86.0 Dehydration; Z53.29 Procedure and treatment not carried out because of patient's decision for other reasons
CPT/HCPCS: 36415; 36416; 80048; 80053; 82962; 93005; 96361; 96365; 96366; 96367; 96375; 99285; 71046; 81003; 81015; 83605; 83735; 84484; 85025; 93010; J2405; J3475

== ENCOUNTER 2018-02-11 11:15 | Emergency (ER) | payer MEDICAID, SELFPAY ==
[2018-02-11 11:20] VITALS: BP 125/82; PULSE 105; RESP 14; TEMP 37.2; O2SAT 100
--- NOTE | 2018-02-11 11:25 | ED.GENADUL ---
Disposition Clinical Impression: Fatigue, DKA (diabetic ketoacidosis) Disposition: HOME Condition: Serious Additional Instructions: You are leaving AGAINST MEDICAL ADVICE. You may have life-threatening or lifestyle modifying disease. In leaving here now without further testing and treatment you may . Please return to the ER at any time for further workup and treatment. Please follow-up with your primary care physician. Referrals: Yunior Kuhn [Primary Care Provider] - Stiven,Britt Stringer MD [ [facility] STAFF PHYSICIAN] - Medical Decision Making - Medical Decision Making 27-year-old male with poorly controlled insulin-dependent diabetes, recently left the emergency department AMA after recommended admission to treat DKA, here at prompting of palliative care for evaluation. Patient is refusing to provide history, allow for exam, allow for any diagnostics or treatment. He was agreeable to a fingerstick glucose that resulted 122. Patient wishes to leave AGAINST MEDICAL ADVICE. Patient is alert, oriented, and has decisional making capacity at this time. I explained to the patient that he may have life-threatening or lifestyle modifying disease. Patient verbalized understanding of my concerns and still wishes to leave without any further diagnostics or treatment. He further wishes to be made DNR/DNI/DNH. Patient states he is not suicidal and not depressed but that he just does not wish to continue battling his chronic disease. I again reiterated my concerns and implored him to have additional diagnostic testing and treatment and he again refused. I called and spoke with Dr. Saleem about presentation and she recommended COLST form be completed prior to discharge. Care management consulted to assist in COLST completion. -- Dr. Saleem at bedside to further discuss and confirm patient wishes. She reiterated my concerns about life threatening disease and reviewed recommended treatment. She agrees that patient have decisional making capacity and confirms his wishes. I again implored the patient to stay for further treatment and provide alternative, treatment options. Patient refused maintaining reason as noted above. Patient left ED AMA. History of Present Illness - General Stated complaint: SHANE Time Seen by Provider: 02/11/18 11:24 Source: patient, RN/MD, EMS Mode of arrival: EMS Limitations: no limitations - History of Present Illness Initial comments: 27-year-old male here with chief complaint of fatigue. Patient is well-known to our emergency department. He has a history of poorly controlled type 1 diabetes with frequent visits for DKA. Patient was seen here in the emergency department yesterday, provided initial resuscitation and treatment and then left AGAINST MEDICAL ADVICE. He returns today at the prompting of Dr. Saleem who is concerned that he was failing to thrive at home. I spoke with Dr. Saleem who specifically had concerns that patient was confused and unable to make decisions for himself. EMS was called and transported patient to ED. Patient is now refusing to provide further history, allow for examination or further diagnostics and treatment. - Related Data Blood Sugar Diagnostic [Freestyle Test Strips] 1 each MC DIRECTED #60 strip 05/02/16 Alcohol Antiseptic Pads [Alcohol Swab] 1 each TP QID #100 med..pad 08/26/17 Blood Sugar Diagnostic [Freestyle Insulinx Test Strips] 1 each MC DIRECTED #60 strip 08/26/17 Lancets [Lancets Thin] 1 each MC QID #120 each 08/26/17 Magnesium Oxide [Mag-Ox 400] 400 mg PO DAILY@1000 #30 tab 08/26/17 Mirtazapine [Remeron] 15 mg PO QPM #30 tab 08/26/17 Multivitamin W/Minerals [Theragran-M] 1 tab PO BID #60 tab 08/26/17 [place], Insulin Disposable [Pen [place]] 1 each MC BID #60 dis.needle 08/26/17 Syringe & Needle,Insulin,1 ml [Insulin Syringe] 1 each MC QID #120 disp.syrin 08/26/17 Dronabinol [Marinol] 5 mg PO BID 10/02/17 Insulin Aspart [Novolog Flexpen] 5 - 10 units SQ AC #5 appful 01/24/18 Insulin Detemir [Levemir Flextouch Pen] 5 units SC BID@1000,2200 #5 pen 01/24/18 Allergies Allergy/AdvReac Type Severity Reaction Status Date / Time lidocaine AdvReac Severe silent Unverified 02/11/18 11:31 stroke procaine HCl [From Novocain] AdvReac Severe silent Unverified 02/11/18 11:31 stroke Penicillins AdvReac Intermediate vomiting Unverified 02/11/18 11:31 etodolac AdvReac Mild Nausea Unverified 02/11/18 11:31 ketorolac tromethamine AdvReac Mild vomits Unverified 02/11/18 11:31 [From Toradol] sodium fluoride AdvReac Mild Unverified 02/11/18 11:31 [From Fluor-a-day] morphine AdvReac Nausea Unverified 02/11/18 11:31 Review of Systems Other: patient denies pain, just tired Past Medical History - Past Medical History Medical history: diabetes, GERD, hyperlipidemia Malabsorption syndrome Surgical history: no surgical history - Social History Alcohol use: none Drug use: marijuana General Exam - General Limitations: other (patient refuses exam) General appearance: alert, in no apparent distress - Eye Eye exam: Present: EOMI - ENT ENT exam: Present: mucous membranes moist - Respiratory Respiratory exam: Absent: respiratory distress - Neurological Exam Neurological exam: Present: alert, oriented X3. Absent: altered - Psychiatric Psychiatric exam: Present: normal affect. Absent: depressed - Skin Skin exam: Absent: cyanosis, diaphoretic, pallor
--- NOTE | 2018-02-11 11:28 | ED.GENADUL_ITS ---
Disposition Clinical Impression: Fatigue, DKA (diabetic ketoacidosis) Disposition: HOME Condition: Serious Additional Instructions: You are leaving AGAINST MEDICAL ADVICE. You may have life-threatening or lifestyle modifying disease. In leaving here now without further testing and treatment you may . Please return to the ER at any time for further workup and treatment. Please follow-up with your primary care physician. Referrals: Yunior Kuhn [Primary Care Provider] - Stiven,Britt Stringer MD [ [facility] STAFF PHYSICIAN] - Medical Decision Making - Medical Decision Making 27-year-old male with poorly controlled insulin-dependent diabetes, recently left the emergency department AMA after recommended admission to treat DKA, here at prompting of palliative care for evaluation. Patient is refusing to provide history, allow for exam, allow for any diagnostics or treatment. He was agreeable to a fingerstick glucose that resulted 122. Patient wishes to leave AGAINST MEDICAL ADVICE. Patient is alert, oriented, and has decisional making capacity at this time. I explained to the patient that he may have life-threatening or lifestyle modifying disease. Patient verbalized understanding of my concerns and still wishes to leave without any further diagnostics or treatment. He further wishes to be made DNR/DNI/DNH. Patient states he is not suicidal and not depressed but that he just does not wish to continue battling his chronic disease. I again reiterated my concerns and implored him to have additional diagnostic testing and treatment and he again refused. I called and spoke with Dr. Saleem about presentation and she recommended COLST form be completed prior to discharge. Care management consulted to assist in COLST completion. -- Dr. Saleem at bedside to further discuss and confirm patient wishes. She reiterated my concerns about life threatening disease and reviewed recommended treatment. She agrees that patient have decisional making capacity and confirms his wishes. I again implored the patient to stay for further treatment and provide alternative, treatment options. Patient refused maintaining reason as noted above. Patient left ED AMA. History of Present Illness - General Stated complaint: SHANE Time Seen by Provider: 02/11/18 11:24 Source: patient, RN/MD, EMS Mode of arrival: EMS Limitations: no limitations - History of Present Illness Initial comments: 27-year-old male here with chief complaint of fatigue. Patient is well-known to our emergency department. He has a history of poorly controlled type 1 diabetes with frequent visits for DKA. Patient was seen here in the emergency department yesterday, provided initial resuscitation and treatment and then left AGAINST MEDICAL ADVICE. He returns today at the prompting of Dr. Saleem who is concerned that he was failing to thrive at home. I spoke with Dr. Saleem who specifically had concerns that patient was confused and unable to make decisions for himself. EMS was called and transported patient to ED. Patient is now refusing to provide further history, allow for examination or further diagnostics and treatment. - Related Data Blood Sugar Diagnostic [Freestyle Test Strips] 1 each MC DIRECTED #60 strip 05/02/16 Alcohol Antiseptic Pads [Alcohol Swab] 1 each TP QID #100 med..pad 08/26/17 Blood Sugar Diagnostic [Freestyle Insulinx Test Strips] 1 each MC DIRECTED # 60 strip 08/26/17 Lancets [Lancets Thin] 1 each MC QID #120 each 08/26/17 Magnesium Oxide [Mag-Ox 400] 400 mg PO DAILY@1000 #30 tab 08/26/17 Mirtazapine [Remeron] 15 mg PO QPM #30 tab 08/26/17 Multivitamin W/Minerals [Theragran-M] 1 tab PO BID #60 tab 08/26/17 [place], Insulin Disposable [Pen [place]] 1 each MC BID #60 dis.needle 08/26/17 Syringe & Needle,Insulin,1 ml [Insulin Syringe] 1 each MC QID #120 disp.syrin Dronabinol [Marinol] 5 mg PO BID 10/02/17 Insulin Aspart [Novolog Flexpen] 5 - 10 units SQ AC #5 appful 01/24/18 Insulin Detemir [Levemir Flextouch Pen] 5 units SC BID@1000,2200 #5 pen Allergies Allergy/AdvReac Type Severity Reaction Status Date / Time lidocaine AdvReac Severe silent Unverified 02/11/18 11:31 stroke procaine HCl [From Novocain] AdvReac Severe silent Unverified 02/11/18 11:31 stroke Penicillins AdvReac Intermediate vomiting Unverified 02/11/18 11:31 etodolac AdvReac Mild Nausea Unverified 02/11/18 11:31 ketorolac tromethamine AdvReac Mild vomits Unverified 02/11/18 11:31 [From Toradol] sodium fluoride AdvReac Mild Unverified 02/11/18 11:31 [From Fluor-a-day] morphine AdvReac Nausea Unverified 02/11/18 11:31 Review of Systems Other: patient denies pain, just tired Past Medical History - Past Medical History Medical history: diabetes, GERD, hyperlipidemia Malabsorption syndrome Surgical history: no surgical history - Social History Alcohol use: none Drug use: marijuana General Exam - General Limitations: other (patient refuses exam) General appearance: alert, in no apparent distress - Eye Eye exam: Present: EOMI - ENT ENT exam: Present: mucous membranes moist - Respiratory Respiratory exam: Absent: respiratory distress - Neurological Exam Neurological exam: Present: alert, oriented X3. Absent: altered - Psychiatric Psychiatric exam: Present: normal affect. Absent: depressed - Skin Skin exam: Absent: cyanosis, diaphoretic, pallor
== END 2018-02-11 12:32 | disposition home or self-care (01) ==
PROVIDERS: Emergency Provider Student in an Organized Health Care Education/Training Program; PCP Specialist/Technologist Athletic Trainer
DX: R53.83 Other fatigue (principal); E11.10 Type 2 diabetes mellitus with ketoacidosis without coma
CPT/HCPCS: 36416; 82962; 99283